=== PATIENT | female | born 1950 | race Two or more races ===

== ENCOUNTER 2021-04-24 12:19 | Emergency (ER) | payer OTHER ==
[~2021-04-24] VITALS: Ht 154.9 cm; Wt 86.2 kg
[2021-04-24] MEDS ORDERED: CANDESARTAN CILE8 MG PO (12:42)
[2021-04-24] MEDS ORDERED: TIROSINT25 MCG PO (12:42)
[2021-04-24] MEDS ORDERED: LIPITOR20 MG PO (12:43)
[2021-04-24] MEDS ORDERED: DICLOFENAC POTA50 MG PO (17:52)
[2021-04-24] MEDS ORDERED: ORPHENADRINE C100 MG PO (17:52)
== END 2021-04-24 18:21 ==
LOC: ER 12:19
DX: S13.8XXA Sprain of joints and ligaments of other parts of neck, initial encounter (principal); S09.8XXA Other specified injuries of head, initial encounter; S83.92XA Sprain of unspecified site of left knee, initial encounter; V49.88XA Car occupant (driver) (passenger) injured in other specified transport accidents, initial encounter; Y92.410 Unspecified street and highway as the place of occurrence of the external cause; S43.402A Unspecified sprain of left shoulder joint, initial encounter; I10 Essential (primary) hypertension